=== PATIENT | female | born 1970 | race American Indian/Alaskan Native ===

== ENCOUNTER 2018-03-24 09:39 | Emergency (ER) | payer MEDICARE, MEDICAID ==
[2018-03-24 09:40] VITALS: BMI 30.2
[2018-03-24 09:54] VITALS: RESP 18
--- NOTE | 2018-03-24 10:10 | ED PDOC ---
Arrival/HPI - General Chief Complaint: Dizziness/Lightheaded Time Seen by Provider: 03/24/18 09:47 Historian: Patient - History of Present Illness Narrative History of Present Illness (Text): 03/24/18 10:05 47 year old female, whose past medical history includes diabetes, renal cell cancer, hypertension, and asthma, who presents to the Emergency department s/p syncopal episode. Patient states she got up from bed and felt like the room was spinning. The patient then went to the bathroom and fell to the floor. Patient states she currently still feels dizzy. Patient denies any fever, chills, chest pain, shortness of breath, nausea, vomiting, diarrhea, urinary symptoms, back pain, neck pain, headache, or any other complaints. Time/Duration: Prior to Arrival Symptom Onset: Gradual Symptom Course: Unchanged Activities at Onset: Light Context: Home Past Medical History - Provider Review Nursing Documentation Reviewed: Yes - Infectious Disease Hx of Infectious Diseases: None - Tetanus Immunization Tetanus Immunization: Unknown - Cardiac Hx Hypertension: Yes - Pulmonary Hx Asthma: Yes - Neurological HX Cerebrovascular Accident: Yes - Renal Other/Comment: Kidney cancer - Endocrine/Metabolic Hx Diabetes Mellitus Type 1: Yes - Psychiatric Hx Substance Use: No - Surgical History Hx Gastric Bypass Surgery: Yes (2010) Hx Hysterectomy: Yes - Anesthesia Hx Anesthesia: No Hx Anesthesia Reactions: No Hx Malignant Hyperthermia: No - Suicidal Assessment Feels Threatened In Home Enviroment: No Family/Social History - Physician Review Nursing Documentation Reviewed: Yes Family/Social History: Unknown Family HX Smoking Status: Never Smoked Hx Alcohol Use: Yes Frequency of alcohol use: Socially Hx Substance Use: No Hx Substance Use Treatment: No Allergies/Home Meds Allergies/Adverse Reactions: Allergies ceftriaxone [From Rocephin] Allergy (Verified 03/24/18 10:14) RASH iodine Allergy (Verified 03/24/18 10:14) RASH latex Adverse Reaction (Verified 03/24/18 10:14) RASH Home Medications: Home Meds Medication Instructions Recorded Confirmed Albuterol HFA [Ventolin HFA 90 0.09 mg IH PRN PRN 04/21/14 03/24/18 mcg/actuation (8 g)] Aspirin [Aspirin Chewable] 81 mg PO DAILY 03/24/18 03/24/18 Famotidine [Pepcid] 40 mg PO DAILY 03/24/18 03/24/18 Insulin Lispro [humALOG] 0 units SC BID 03/24/18 03/24/18 Lamotrigine [Lamictal] 150 mg PO DAILY 03/24/18 03/24/18 Levetiracetam [Keppra] 250 mg PO BID 03/24/18 03/24/18 Lisinopril [Zestril] 10 mg PO DAILY 03/24/18 03/24/18 Zolpidem [Ambien] 5 mg PO DAILY 03/24/18 03/24/18 Review of Systems - Physician Review All systems were reviewed & negative as marked: Yes - Review of Systems Constitutional: Normal Eyes: Normal ENT: Normal Respiratory: Normal. absent: SOB, Cough Cardiovascular: Normal. absent: Chest Pain Gastrointestinal: Normal. absent: Abdominal Pain Genitourinary Female: Normal. absent: Dysuria, Frequency Musculoskeletal: Normal. absent: Back Pain, Neck Pain Skin: Normal. absent: Rash Neurological: Dizziness. absent: Headache Endocrine: Normal Hemo/Lymphatic: Normal Psychiatric: Normal Physical Exam Vital Signs Reviewed: Yes Vital Signs Temp Pulse Resp BP Pulse Ox 03/24/18 15:53 98.3 F 72 18 114/70 99 03/24/18 15:10 98.2 F 54 L 18 105/67 98 03/24/18 14:27 57 L 18 118/70 99 03/24/18 12:59 65 18 131/68 100 03/24/18 09:54 98.2 F 60 18 128/64 100 Temperature: Afebrile Blood Pressure: Normal Pulse: Regular Respiratory Rate: Normal Appearance: Positive for: Well-Appearing, Non-Toxic, Comfortable Pain Distress: None Mental Status: Positive for: Alert and Oriented X 3 Finger Stick Blood Glucose: 202 - Systems Exam Head: Present: Atraumatic, Normocephalic Pupils: Present: PERRL Extroacular Muscles: Present: Other (stagmis) Conjunctiva: Present: Normal Mouth: Present: Moist Mucous Membranes Neck: Present: Normal Range of Motion Respiratory/Chest: Present: Clear to Auscultation, Good Air Exchange. No: Respiratory Distress, Accessory Muscle Use Cardiovascular: Present: Regular Rate and Rhythm, Normal S1, S2. No: Murmurs Abdomen: No: Tenderness, Distention, Peritoneal Signs Back: Present: Normal Inspection Upper Extremity: Present: Normal Inspection. No: Cyanosis, Edema Lower Extremity: Present: Normal Inspection. No: Edema Neurological: Present: GCS=15, CN II-XII Intact, Speech Normal Skin: Present: Warm, Dry, Normal Color. No: Rashes Psychiatric: Present: Alert, Oriented x 3, Normal Insight, Normal Concentration Medical Decision Making ED Course and Treatment: 03/24/18 10:12 Impression: 47 year old female presents to the emergency department s/p syncopal episode. Plan: -- Reassess and disposition Progress Notes: EKG reviewed, shows Sinus Bradycardia at 59 bpm. Non specific T wave changes. 03/24/18 11:14 Pt wants to be transferred to [facility] [place]. Spoke to family members, who also want pt transferred. 03/24/18 11:[address] Martin, who doesn't know how he can do a direct transfer to [facility]. States pt will have to be transferred through [facility]'s emergency department. 03/24/18 11:38 Spoke to [facility] attending, who states that since [facility] can care for siezure/ syncopal episode patients, that it would be a violation to accept the transfer. The only way for the pt to go to [facility] is if the pt signs out AMA here and goes to [facility] herself. 03/24/18 11:52 CT head reviewed, shows: IMPRESSION: No acute findings 03/24/18 12:59 Multiple pages were made to Dr. Posey about the refusal to accept transfer. Dr. Posey has not returned any calls or pages. 03/24/18 13:06 The pt was able to get in touch with Dr. Posey, who will call admitting at [facility] for direct admission. 03/24/18 14:29 [facility] [place] unless pt pays transportation fee of $1700 up front, since transfer was the patient's request. 03/24/18 14:56 Chest X-ray reviewed, shows: IMPRESSION: No active disease. - Lab Interpretations Lab Results: 03/24/18 10:10 03/24/18 10:10 Lab Results 03/24/18 12:20: Blood Type Confirm B POSITIVE 03/24/18 11:20: Blood Type B POSITIVE, Antibody Screen Negative, BBK History Checked No verified bt 03/24/18 11:00: Levetiracetam <1.0 03/24/18 11:00: Lamotrigine 10.7 03/24/18 10:10: pO2 50, VBG pH 7.37, VBG pCO2 51.0, VBG HCO3 29.5 H, VBG Total CO2 31.1 H, VBG O2 Sat (Calc) 87.4 H, VBG Base Excess 3.1 H, VBG Potassium 3.6, Sodium 137.0, Chloride 102.0, Glucose 202 H, Lactate 0.9, FiO2 21.0, Venous Blood Potassium 3.6 03/24/18 10:10: Alcohol, Quantitative < 10 03/24/18 10:10: Sodium 139, Chloride 102, Potassium 3.7, Carbon Dioxide 29, Anion Gap 11, BUN 7, Creatinine 0.7, Est GFR ( Amer) > 60, Est GFR (Non- Af Amer) > 60, Random Glucose 195 H, Calcium 8.8, Phosphorus 3.1, Magnesium 2.0 , Total Bilirubin 0.3, AST 18, ALT 26, Alkaline Phosphatase 138 H, Lactate Dehydrogenase 387, Total Creatine Kinase 67, Troponin I 0.01, NT-Pro-B Natriuret Pep 24.9, Total Protein 6.7, Albumin 3.8, Globulin 2.9, Albumin/ Globulin Ratio 1.3 03/24/18 10:10: PT 12.4, INR 1.08 03/24/18 10:10: WBC 3.9 L, RBC 3.95, Hgb 11.2 L, Hct 35.1 L, MCV 88.9, MCH 28.4 , MCHC 31.9, RDW 12.6, Plt Count 300, MPV 10.0, Gran % 57.1, Lymph % (Auto) 32.2 , [place] % (Auto) 8.7 H, Eos % (Auto) 1.5, Baso % (Auto) 0.5, Gran # 2.23, Lymph # (Auto) 1.3, [place] # (Auto) 0.3, Eos # (Auto) 0.1, Baso # (Auto) 0.02 03/24/18 09:53: POC Glucose (mg/dL) 202 H - RAD Interpretation Radiology Orders: 03/24/18 10:15 HEAD W/O CONTRAST [CT] Stat CHEST PORTABLE [RAD] Stat - Medication Orders Current Medication Orders: Discontinued Medications Acetaminophen (Tylenol 325mg Tab) 650 mg PO STAT STA Stop: 03/24/18 13:09 Last Admin: 03/24/18 14:54 Dose: 650 mg MAR Pain/Vitals Document 03/24/18 14:54 EWO (Rec: 03/24/18 14:55 EWO [id number]) Pain Reassessment Is This A Pain ReAssessment? No Sleep Is patient sleeping during reassessment? 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 Description Intermittent Intensity 4 NIHSS Scale ([place]) Time Performed: 10:13 - How Severe is the Stoke Baseline Level of Consciousness: 0=Alert LOC to Questions: 0=Both comments correct LOC to commands: 0=Obeys both correctly Best Gaze: 0=Normal Visual: 0=No visual loss Facial: 0=Normal Motor Arm - Left: 0=No drift Motor Arm - Right: 0=No drift Motor Leg - Left: 0=No drift Motor Leg - Right: 0=No drift Limb Ataxia: 0=Absent Sensory: 0=Normal Best Language: 0=No aphasia Dysarthia: 0=Normal articulation Extinction & Inattention (Neglect): 0=Normal, no object Score: 0 Risk Level: No Stroke Risk - Scribe Statement The provider has reviewed the documentation as recorded by the Scribe Delia Corrales All medical record entries made by the Scribe were at my direction and personally dictated by me. I have reviewed the chart and agree that the record accurately reflects my personal performance of the history, physical exam, medical decision making, and the department course for this patient. I have also personally directed, reviewed, and agree with the discharge instructions and disposition. Disposition/Present on Arrival - Present on Arrival Any Indicators Present on Arrival: No History of DVT/PE: No History of Uncontrolled Diabetes: No Urinary Catheter: No History of Decub. Ulcer: No History Surgical Site Infection Following: None - Disposition Have Diagnosis and Disposition been Completed?: Yes Diagnosis: Syncope and collapse, Fall, Seizure disorder Disposition: Transfer [facility] Disposition Time: 13:27 Patient Plan: Other (Transfer to [facility] Direct to Telemetry Bed Dr Lott Accepting), [place] [place] Condition: FAIR Discharge Instructions (ExitCare): Syncope (ED) Forms: [employer] (Tajik)
[2018-03-24 10:29] LABS: VENOUS BLOOD GAS BASE EXCESS 3.1 mmol/L (0.0-2.0); VENOUS BLOOD GAS PO2 50 mm/Hg (30-55); VENOUS BLOOD PH 7.37 (7.32-7.43)
[2018-03-24 10:38] LABS: ALB/GLOB RATIO 1.3 (1.1-1.8); ALBUMIN 3.8 g/dL (3.0-4.8); ALT/SGPT 26 U/L (7-56); AST/SGOT 18 U/L (14-36); BLOOD UREA NITROGEN 7 mg/dL (7-21); CALCIUM 8.8 mg/dL (8.4-10.5); GFR NON-AFRICAN AMERICAN > 60
[2018-03-24 10:50] LABS: B-TYPE NATRIURETIC PEPTIDE 24.9 pg/mL (0-450); TROPONIN I 0.01 ng/mL
[2018-03-24 11:16] LABS: BASO # 0.02 K/mm3 (0.0-2.0); BASO % 0.5 % (0.0-3.0); EOS # 0.1 (0.0-0.7); EOS % 1.5 % (1.5-5.0); GRAN # 2.23 (1.4-6.5); GRAN % 57.1 % (50.0-68.0); HEMOGLOBIN 11.2 g/dL (12.0-16.0); LYMPH # 1.3 (1.2-3.4); LYMPH % 32.2 % (22.0-35.0); MEAN CELL VOLUME 88.9 fl (80.0-105.0); MEAN CORPUSCULAR HEMOGLOBIN 28.4 pg (25.0-35.0); MEAN CORPUSCULAR HGB CONC 31.9 g/dl (31.0-37.0); MONO # 0.3 (0.1-0.6); MONO % 8.7 % (1.0-6.0); RBC 3.95 10^6/uL (3.5-6.1); RED CELL DISTRIBUTION WIDTH 12.6 % (11.5-14.5); WHITE BLOOD COUNT 3.9 10^3/ul (4.5-11.0)
[2018-03-24 11:17] LABS: INR 1.08; PROTHROMBIN TIME 12.4 SECONDS (9.4-12.5)
--- NOTE | 2018-03-24 11:48 | CT ---
Date of service: 03/24/2018 PROCEDURE: CT HEAD WITHOUT CONTRAST. HISTORY: Dizzy COMPARISON: None available. TECHNIQUE: Axial computed tomography images were obtained through the head/brain without intravenous contrast. Radiation dose: Total exam DLP = 914 mGy-cm. This CT exam was performed using one or more of the following dose reduction techniques: Automated exposure control, adjustment of the mA and/or kV according to patient size, and/or use of iterative reconstruction technique. FINDINGS: HEMORRHAGE: No intracranial hemorrhage. BRAIN: No mass effect or edema. No atrophy or chronic microvascular ischemic changes. VENTRICLES: Unremarkable. No hydrocephalus. CALVARIUM: Unremarkable. PARANASAL SINUSES: Unremarkable as visualized. No significant inflammatory changes. MASTOID AIR CELLS: Unremarkable as visualized. No inflammatory changes. OTHER FINDINGS: None. IMPRESSION: No acute findings
--- NOTE | 2018-03-24 14:52 | RAD ---
Date of service: 03/24/2018 HISTORY: dizzy COMPARISON: 04/21/2014 FINDINGS: LUNGS: No active pulmonary disease. PLEURA: No significant pleural effusion identified, no pneumothorax apparent. CARDIOVASCULAR: Normal. OSSEOUS STRUCTURES: No significant abnormalities. VISUALIZED UPPER ABDOMEN: Normal. OTHER FINDINGS: None. IMPRESSION: No active disease.
[2018-03-24 16:00] VITALS: BP 114/70; PULSE 72; TEMP 98.3; O2SAT 99
--- NOTE | 2018-03-24 22:03 | CARD ---
APPROVED REPORT Date of service: 03/24/2018 EKG Measurement Heart [id number] <Conclusion> Sinus bradycardia Nonspecific T wave abnormality Abnormal ECG
== END 2018-03-24 15:53 | disposition short-term general hospital (02) ==
LOC: ED 09:39
DX: G40.909 Epilepsy, unspecified, not intractable, without status epilepticus (principal); R55 Syncope and collapse; W18.39XA Other fall on same level, initial encounter; Y92.008 Other place in unspecified non-institutional (private) residence as the place of occurrence of the external cause; E11.9 Type 2 diabetes mellitus without complications; I10 Essential (primary) hypertension; Z85.528 Personal history of other malignant neoplasm of kidney; Z86.73 Personal history of transient ischemic attack (TIA), and cerebral infarction without residual deficits
CPT/HCPCS: 70450; 71045; 80053; 80175; 80177; 82550; 82803; 82948; 83615; 83735; 83880; 84100; 84484; 85025; 85610; 86850; 86900; 93005; 99285; G0480